=== PATIENT | female | born 1985 | race Two or more races ===

== ENCOUNTER 2018-04-02 13:56 | Emergency (ER) | payer MEDICAID ==
[2018-04-02 14:09] VITALS: BP 108/66
[2018-04-02] MEDS ORDERED: CLINDAMYCIN HCL 150 MG CAPSULE PO ONE (14:49)
[2018-04-02] MEDS ORDERED: ACETAMINOPHEN 325 MG TABLET PO ONE (14:49)
--- NOTE | 2018-04-02 14:51 | ER Document Report ---
ED Medical Screen (RME) - General Chief Complaint: Swelling Stated Complaint: FOOT PAIN Time Seen by Provider: 04/02/18 14:44 Notes: RAPID MEDICAL EVALUATION DISCLOSURE I have seen this patient as part of a Rapid Medical Evaluation and, if applicable, placed any initially appropriate orders. The patient will be seen and fully evaluated, including a full history and physical exam, by a provider ( in Main ED or Fast Track) when a room becomes available. 33-year-old female here with complaints of left foot redness pain and swelling. She was bit by a spider 2 weeks ago while she was at an outdoor wedding but the symptoms started approximately 2 days ago and have progressively worsened. There is some greenish discharge coming out of the area where she was bitten. She went to an urgent care facility today and was told she needed to come here for further evaluation. EXAM Mild left foot swelling with mild erythema Unable to visualize any drainage or express any drainage TRAVEL OUTSIDE OF THE [place] IN LAST 30 DAYS: No - Related Data Allergies/Adverse Reactions: No Known Allergies Allergy (Unverified 04/02/18 13:57) Past Medical History - Social History Chew tobacco use (# tins/day): No Frequency of alcohol use: None Drug Abuse: None Renal/ Medical History: Denies: Hx Peritoneal Dialysis Past Surgical History: Reports: Hx Breast Surgery - augmentation Physical Exam - Vital signs Vitals: Temp Pulse Resp BP Pulse Ox 98.8 F 72 16 108/66 100 04/02/18 14:08 04/02/18 14:08 04/02/18 14:08 04/02/18 14:08 04/02/18 14:08 Course - Vital Signs Vital signs: Temp Pulse Resp BP Pulse Ox 98.8 F 72 16 108/66 100 04/02/18 14:08 04/02/18 14:08 04/02/18 14:08 04/02/18 14:08 04/02/18 14:08
--- NOTE | 2018-04-02 15:12 | ER Document Report ---
ED Extremity Problem, Lower - General Chief Complaint: Swelling Stated Complaint: FOOT PAIN Time Seen by Provider: 04/02/18 14:44 Mode of Arrival: Ambulatory Information source: Patient TRAVEL OUTSIDE OF THE [place] IN LAST 30 DAYS: No - HPI Patient complains to provider of: Pain, Swelling Location: Foot Occurred: Other - 2 days Notes: Patient is here with complaints of left foot pain and swelling. The patient states that 2 weeks ago she was at an outdoor wedding and thought she may have potentially been bitten by a spider on the top of her left foot although she did not actually visualize anything bite her. She did she had a trevor to the top of her left foot that has been present for about 2 weeks now. She states that over the last 2 days the area has become tender, red and swollen. She states that she is gotten a little bit of drainage from the wound, but it is not currently draining at this time. She does not have diabetes. She denies any fever. She denies any nausea, vomiting, diarrhea. She denies any numbness , tingling, weakness. She denies any rashes. She denies any chest pain or shortness of breath. She was seen at urgent care was sent to the emergency department for further evaluation. States that the area is tender to palpation , better with rest. She denies any other complaints at this time. - Related Data Allergies/Adverse Reactions: No Known Allergies Allergy (Unverified 04/02/18 13:57) Past Medical History - Social History Smoking Status: Current Every Day Smoker Chew tobacco use (# tins/day): No Frequency of alcohol use: None Drug Abuse: None Family History: Reviewed & Not Pertinent Patient has suicidal ideation: No Patient has homicidal ideation: No Renal/ Medical History: Denies: Hx Peritoneal Dialysis Past Surgical History: Reports: Hx Breast Surgery - augmentation Review of Systems - Review of Systems -: Yes All other systems reviewed and negative Physical Exam - Vital signs Vitals: Temp Pulse Resp BP Pulse Ox 98.8 F 72 16 108/66 100 04/02/18 14:08 04/02/18 14:08 04/02/18 14:08 04/02/18 14:08 04/02/18 14:08 - Notes Notes: GENERAL: alert, cooperative, nontoxic, no distress. HEAD: normocephalic, atraumatic EYES: conjunctiva pink without discharge, no external redness or swelling. EARS: no external swelling, no external redness NOSE: atraumatic, no external swelling MOUTH/THROAT: mucous membranes moist and pink, posterior pharynx without erythema, swelling, exudate. No trismus or drooling. NECK: soft, supple, full range of motion, no meningismus. CHEST: no distress, lungs clear and equal throughout. No wheezing, rales, rhonchi. CARDIAC: regular rate and rhythm, no murmur, normal capillary refill, normal pulses. No peripheral edema noted. ABDOMEN: Soft, nontender. BACK: full range of motion, no CVA tenderness. EXTREMITIES: full range of motion of all extremities. Patient is noted to have a small crusted lesion to the dorsum of the left foot. There is some mild surrounding erythema and swelling. It is mildly tender to palpation. No drainable abscess palpated and no drainage at this time. There is no redness or streaking up the leg. Normal pulse and sensation. NEURO: alert and oriented x 3, no focal deficits, full range of motion of all extremities. PYSCH: appropriate mood, affect. Patient is cooperative. SKIN: pink, warm, dry, no rash. Course - Re-evaluation Re-evalutation: 04/02/18 15:51 Patient is nontoxic appearing with stable vitals. She is here with complaints of left foot pain. She thinks she may have been bitten by spider on the top of her left foot a few weeks ago. Over the last few days the areas become red, swollen, tender. On exam she has some mild redness, swelling, tenderness. There is no drainage from the area. No fluctuant abscess palpable. She has not been running fevers. She is not a diabetic. She has had no nausea vomiting. She was given a dose of clindamycin in the emergency department. X- ray left foot shows soft tissue swelling with no sign of osteomyelitis or foreign body. This point the patient can be discharged home on a trial of oral antibiotics with instructions to soak her foot. Follow-up if the foot does not improve in the next 2 days, but follow-up sooner for worsening pain, fever, increased redness, increased swelling, numbness, tingling, weakness, chest pain or shortness of breath, or for any further concerns. The patient's emergency department workup and current diagnosis were explained to the patient and or family. Follow-up instructions were provided. Medications if prescribed were discussed. Instructions for when to return to the emergency department including specific worrisome symptoms were discussed with the patient and/or family. - Vital Signs Vital signs: Temp Pulse Resp BP Pulse Ox 98.8 F 72 16 108/66 100 04/02/18 14:08 04/02/18 14:08 04/02/18 14:08 04/02/18 14:08 04/02/18 14:08 - Diagnostic Test Radiology reviewed: Image reviewed, Reports reviewed - NEGATIVE LEFT FOOT. SOFT TISSUE SWELLING. Discharge - Discharge Clinical Impression: Cellulitis of left foot Condition: Stable Disposition: HOME, SELF-CARE Instructions: Cellulitis ([facility]) Additional Instructions: Take medications as prescribed. Soak her foot in warm soapy water. Follow-up if not improved in the next 48 hours. Follow-up sooner for worsening pain, fever, increased redness or swelling, persistent vomiting, drainage, or for any further concerns. The medication you were prescribed today may cause drowsiness. Do not drive or operate heavy machinery while taking this medication. Prescriptions: Clindamycin HCl 300 mg PO QID #40 capsule Hydrocodone/Acetaminophen [[place] 5-325 mg Tablet] 2 tab PO Q6H PRN #10 tab PRN Reason: Forms: Smoking Cessation Education Referrals: [facility] [Provider Group] - Follow up as needed
--- NOTE | 2018-04-02 15:46 | RADIOLOGY REPORT (SQ) ---
EXAM DESCRIPTION: FOOT LEFT COMPLETE COMPLETED DATE/TIME: 04/02/2018 3:35 pm REASON FOR STUDY: cellulitis; eval for osteo COMPARISON: None. NUMBER OF VIEWS: Three views. TECHNIQUE: AP, lateral and oblique radiographic images acquired of the left foot. LIMITATIONS: None. FINDINGS: MINERALIZATION: Normal. BONES: No acute fracture or dislocation. No worrisome bone lesions. JOINTS: No effusions. SOFT TISSUES: Diffuse swelling over the forefoot. No foreign body. OTHER: No other significant finding. IMPRESSION: Soft tissue swelling. No evidence of osteomyelitis. TECHNICAL DOCUMENTATION: JOB ID: [id number] [employer]- All Rights Reserved Reading location - IP/workstation name: [email or web address]
== END 2018-04-02 16:01 | disposition home or self-care (01) ==
LOC: ER 13:56
DX: L03.116 Cellulitis of left lower limb (principal); M79.672 Pain in left foot; F17.200 Nicotine dependence, unspecified, uncomplicated
CPT/HCPCS: 99283; 73630; J3490 ×2

== ENCOUNTER 2018-04-06 15:58 | Emergency (ER) | payer MEDICAID ==
[2018-04-06 16:04] VITALS: BP 115/68
[2018-04-06] MEDS ORDERED: CEFTRIAXONE INJ 1000 MG VIAL IM ONE (16:21)
[2018-04-06] MEDS ORDERED: LIDOCAINE 1% INJ-PF (10 MG/ML) 30 ML SDV INJ ONE (16:21)
--- NOTE | 2018-04-06 16:37 | ER Document Report ---
HPI - HPI Patient complains to provider of: recheck Onset: Other - 4 days Onset/Duration: Persistent Quality of pain: Achy Pain Level: 3 Context: Patient was evaluated for cellulitis 4 days ago and placed on antibiotics. Patient states she has been cleaning the wound to her foot with peroxide multiple times each day. Patient states that the cellulitis does not seem to be improving but also does not seem to be worsening. Patient denies any fever or history of diabetes. Patient denies any known injury. Patient states she works long shifts standing on her feet and feels that this is worsening her pain and foot swelling symptoms. Associated Symptoms: Other - Foot swelling. denies: Fever Exacerbated by: Standing, Walking Relieved by: Denies Similar symptoms previously: No Recently seen / treated by doctor: Yes - ROS ROS below otherwise negative: Yes Systems Reviewed and Negative: Yes All other systems reviewed and negative - CONSTITUTIONAL Constitutional: DENIES: Fever - NEURO Neurology: DENIES: Headache, Weakness - GASTROINTESTINAL Gastrointestinal: DENIES: Nausea, Patient vomiting - MUSCULOSKELETAL Musculoskeletal: REPORTS: Extremity pain, Swelling - DERM Notes: Crusted wound to the top of left foot Past Medical History - General Information source: Patient - Social History Smoking Status: Current Every Day Smoker Smoking Education Provided: Yes Frequency of alcohol use: None Drug Abuse: None 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 IN LAST 30 DAYS: No - HEENT HEENT: Atraumatic, Normocephalic - NECK Neck: Normal Inspection - RESPIRATORY Respiratory: Breath Sounds Normal, No Respiratory Distress - CARDIOVASCULAR Cardiovascular: Regular Rate, Regular Rhythm Pulses: Normal: Dorsalis pedis - MUSCULOSKELETAL/EXTREMETIES Musculoskeletal/Extremeties: ALICE FROM, Edema - 2+ edema to left foot Notes: Crusted skin lesion to dorsal aspect of left foot with very minimal surrounding erythema, no lymphangitis, no fluctuance, no concern for abscess - NEURO Level of Consciousness: Awake, Alert, Appropriate Motor/Sensory: No Motor Deficit - DERM Integumentary: Warm, Dry. negative: Abscess Notes: See above Course - Re-evaluation Re-evalutation: 04/06/18 16:[address] art regarding patient presentation, recommends continuing clindamycin but adding Keflex. Discussed plan of care with patient, patient verbalized understanding and agrees with plan of care. Patient with swelling to the foot that does not appear to be worsening based on photos patient provided, patient acknowledges that foot is not worsening although is not improving in a timely manner that she thought would happen after starting antibiotics. No concern for abscess, very minimal erythema to foot, patient afebrile. Patient nontoxic in appearance. - Vital Signs Vital signs: Temp Pulse Resp BP Pulse Ox 99.1 F 81 16 115/68 100 04/06/18 16:03 04/06/18 16:03 04/06/18 16:03 04/06/18 16:03 04/06/18 16:03 Discharge - Discharge Clinical Impression: Cellulitis of left foot Condition: Stable Disposition: HOME, SELF-CARE Instructions: Cellulitis ([facility]), Cephalexin ([facility]), Clindamycin ([facility]), Rocephin ( [facility]) Additional Instructions: Return immediately for any new or worsening symptoms Followup with your primary care provider, call tomorrow to make a followup appointment Stop using peroxide to cleanse the wound, use antibacterial soap instead. Continue your clindamycin as previously prescribed Prescriptions: Cephalexin Monohydrate [Keflex 500 mg Capsule] 500 mg PO Q6H 7 Days capsule Naproxen [Naprosyn 250 Nmg Tablet] 1 tab PO BID #14 tablet Forms: Smoking Cessation Education, Return to Work Referrals: YVETTE DAWN MD [Primary Care Provider] - Follow up as needed [facility] [Provider Group] - Follow up tomorrow
== END 2018-04-06 16:50 | disposition home or self-care (01) ==
LOC: ER 15:58
DX: L03.116 Cellulitis of left lower limb (principal); F17.200 Nicotine dependence, unspecified, uncomplicated
CPT/HCPCS: 99283; 96372; J3490; J0696